=== PATIENT | male | born 1980 | race Caucasian/White ===

== ENCOUNTER 2018-11-25 23:29 | Emergency (ER) | payer BC, SELFPAY ==
[2018-11-25 23:30] VITALS: BP 144/83; PULSE 127; RESP 16; TEMP 36.6; O2SAT 98; BMI 33.7
--- NOTE | 2018-11-25 23:44 | EKG12_ITS ---
Test Reason : SYNCOPE Blood Pressure : / mmHG Vent. Rate : 106 BPM Atrial Rate : 106 BPM P-R Int : 120 ms QRS Dur : 080 ms QT Int : 320 ms P-R-T Axes : 049 066 -07 degrees QTc Int : 425 ms Sinus tachycardia Nonspecific T wave abnormality Abnormal ECG Confirmed by ABUNDIO ROBLERO, DANYA ([id number]), business editor ZAIRA JIMENEZ ([id number]) on 11/30/2018 1:13:37 PM Referred By: ROSA Confirmed By:DANYA DEL CASTILLO MD
[2018-11-25] MEDS: proMETHazine 25 MG/ML Syringe 12.5 MG IV (23:52)
[2018-11-25] MEDS: Ketorolac 30 MG/ML Syringe IV (23:52)
[2018-11-25 23:53] LABS: Absolute Lymphocyte Count 1.13 X10^3/ul (0.83-4.51); Absolute Neutrophil Count 10.1 X10^3/uL (2.0-7.7); Basophil# 0.03 X10^3/uL; Basophil% 0.2 % (0-1); Eosinophil# 0.25 X10^3/uL; Eosinophils% 2.1 % (0-5); Hematocrit 50.8 % (40-54); Lymphocyte # 1.13 X10^3/ul (4.0); Lymphocyte % 9.3 % (19-41); Mean Corp Hgb Conc 35.6 g/gl (32-36); Mean Corpuscular Hgb 29.6 pg (27.0-32.0); Mean Corpuscular Volume 83.1 fL (80-94); Mean Platelet Vol. 8.9 fl (6.2-12.0); Monocyte# 0.49 X10^3/uL; Neutrophil # 10.11 X10^3/uL (2.7-7.7); Neutrophil % 83.5 % (47-70); POSITIVE COUNT NO; POSITIVE DIFFERENTIAL NO; POSITIVE MORPHOLOGY NO; Platelet Count 255 K/mm3 (150-450); RBC Distribution Width CV 13.1 % (11.6-14.6); RBC Distribution Width SD 39.9 fl (35.1-43.9); Red Blood Count 6.11 M/mm3 (4.6-6.2); White Blood Count 12.1 K/mm3 (4.4-11.0)
[2018-11-25] MEDS: 0.9% Normal Saline 1,000 ML 1000 ML IV ×2 (23:53)
[2018-11-25 23:54] LABS: Hemoglobin 18.1 g/dl (13.0-16.5)
[2018-11-26 00:14] LABS: ALB/GLOB Ratio 1.1 RATIO (0.9-2.4); AST(SGOT) 30 U/L (15-37); Alanine Aminotransfer ALT/SGPT 78 U/L (16-61); Albumin, Serum 4.1 g/dL (3.2-5.0); Alkaline Phosphatase 61 U/L (45-117); Anion Gap 9 (5-15); BUN 22 mg/dL (7-18); BUN/Creat Ratio 23.3 RATIO (10-20); Calcium,Total 8.8 mg/dL (8.5-10.1); Chloride 104 mmol/L (98-107); Creatinine, Serum 0.94 mg/dL (0.70-1.30); EST Glomerular Filtration Rate 95 mL/min (>60); Est Glom Filt Rate - Afr Amer 115 mL/min (>60); Globulin 3.7 g/dL (2.2-4.2); Glucose 126 mg/dL (74-106); Lipase 105 U/L (73-393); Potassium 4.2 mmol/L (3.5-5.1); Protein, Total 7.8 g/dL (6.4-8.2); Sodium Level 137 mmol/L (136-145)
[2018-11-26] MEDS: proCHLORPERazine 10 MG/2 ML Vial IV (00:49)
--- NOTE | 2018-11-26 01:21 | ED.VISSUMM ---
- ER Visit Summary Date of Service: 11/26/18 Chief Complaint: Syncope History of Present Illness: The patient is a 38 M who presents with syncope and nausea vomiting diarrhea. He complains of a headache for the past 3-4 days. He states he has been feeling lightheaded. Today he developed severe nausea vomiting and diarrhea for most of the day. He has had multiple episodes of watery stool multiple episodes of nonbloody nonbilious emesis. He states began to feel sick and went to the bathroom to vomit and he woke up on the floor. This is never occurred previously. He complains of some diffuse abdominal cramping but no focal pain. No fevers. Physical Examination: Initial heart rate 127 vitals otherwise unremarkable Moist mucous membranes Heart regular rhythm tachycardia Lungs are clear Abdomen soft nontender nondistended Alert No focal or lateralizing neurological deficits No meningismus Test Results: Labs notable for white count 12.1, hemoglobin 18.1. Glucose 126, BUN 22, ALT 78, lipase normal. EKG shows a sinus tachycardia at a rate of 106 with T wave inversions in lead III and aVF although this is seen on prior EKG and is unchanged. Emergency Department Course and Treatment: Patient was initially treated with IV fluids Toradol and Phenergan. He states that he feels horrible on reevaluation really had no improved seen. On reevaluation his nausea has resolved. He is told to do p.o. challenge. His headache is improved although not resolved. It is at a tolerable level and he would like to go home. He was discharged. He understands to return for new or worsening symptoms. I suspect that given the abrupt onset of nausea vomiting and diarrhea that this is most likely related to a viral gastroenteritis. Treatment Plan: [] Disposition: Discharge Impression: Gastroenteritis Headache This note was generated with [employer] dictation software. It may contain incorrect words, spelling, and punctuation that were not noted in review of the chart prior to signing ED Disposition - Plan for ED Patient: Chief Complaint: Syncope Referrals: Derrek Allen MD [Primary Care Provider] -
--- NOTE | 2018-11-26 01:28 | ED.DEP ---
ED Disposition - Plan for ED Patient: Chief Complaint: Syncope Instructions: ED Diet Vomiting Diarrhea, ED Cephalgia Unspecified Referrals: Derrek Allen MD [Primary Care Provider] -
[2018-11-26 01:36] VITALS: PULSE 90; RESP 18; O2SAT 94
[2018-11-26 02:21] VITALS: BP 128/78; PULSE 87; RESP 17; O2SAT 97
== END 2018-11-26 02:22 | disposition home or self-care (01) ==
LOC: ED 11-26 00:24
PROVIDERS: Emergency Provider Emergency Medicine; Family Provider Family Medicine; PCP Family Medicine
DX: K52.9 Noninfective gastroenteritis and colitis, unspecified (principal); R55 Syncope and collapse; R51 Headache; F32.9 Major depressive disorder, single episode, unspecified; I10 Essential (primary) hypertension; Z79.899 Other long term (current) drug therapy
CPT/HCPCS: 80053; 83690; 85025; 93005; 96361; 96374; 96375; 99283; J7030; A4216

== ENCOUNTER 2019-03-03 16:10 | Emergency (ER) | payer BC, SELFPAY ==
[2019-03-03 16:11] VITALS: BP 106/71; PULSE 119; RESP 20; TEMP 39; O2SAT 96; BMI 34.2
--- NOTE | 2019-03-03 16:35 | ED.DCSUM_ITS ---
- ER Visit Summary Date of Service: 03/03/19 Chief Complaint: Cough, myalgias, vomiting diarrhea History of Present Illness: The patient is a 38 M symptom onset yesterday mild productive cough, myalgias. Vomiting diarrhea. Tolerating oral fluids. No recent antibiotics. No hematemesis, melena, I met with Naima. No abdominal pain. No chest pain. Fevers today with sweats. No headache. No sick contacts. No flu vaccination this year. Denies any comorbidities of any asthma, COPD cardiac history or diabetes. Took Tylenol at 2 PM. No urinary symptoms. Physical Examination: General: Alert and oriented ?3, no acute distress, nontoxic HEENT: Normocephalic, atraumatic. Moist mucosa membranes Neck: supple, nontender. Cardiovascular: Regular rate 96 and rhythm, no murmurs Respiratory: Normal breath sounds, symmetric, no distress Abdomen: Soft, nontender, nondistended Extremities: Nontender, no edema, pulses intact ?4 Neuro: no focal neurological deficits. Test Results: Chest x-ray negative. White count 6.1. Creatinine 1.25. Influenza A positive. Emergency Department Course and Treatment: Patient nontoxic, tachycardic at triage, normal my exam. History concerning for flu which was confirmed in the lab. Given fluid Zofran Toradol. Still had myalgias. No respiratory symptoms. No comorbidities. Discussed continuing symptomatic treatment no recommended anti-virus at this time. He is p.o. challenge and no difficulties. Continue Tylenol and Motrin. Continue oral hydration. Given work note for the next 2 days. Signs and symptoms discussed to return. All questions were answered. Treatment Plan: [] Disposition: Discharge Impression: Influenza A This note was generated with [employer] dictation software. It may contain incorrect words, spelling, and punctuation that were not noted in review of the chart prior to signing ED Disposition - Plan for ED Patient: Disposition: Home or Assisted Living Diagnosis: Influenza A Instructions: Influenza Prescriptions: Ondansetron [Zofran Odt] 4 mg PO Q8H PRN PRN #10 tablet PRN Reason: Nausea Referrals: Derrek Allen MD [Primary Care Provider] - 3-5 Days if not improving
[2019-03-03] MEDS: Ondansetron 4 MG/2 ML Vial IV (16:45)
[2019-03-03] MEDS: Ketorolac 30 MG/ML Syringe IV (16:45)
[2019-03-03] MEDS: 0.9% Normal Saline 1,000 ML 1000 ML IV (16:45)
--- NOTE | 2019-03-03 16:50 | RAD_ITS ---
STUDY: X-RAY CHEST REASON FOR EXAM: Male, 38 years old. Cough TECHNIQUE: Frontal and lateral views of the chest COMPARISON: None. FINDINGS: The lungs are clear. There are no pleural effusions. There is no pneumothorax. The heart is normal in size. The visualized osseous structures are within normal limits. RAD/Chest PA and Lateral IMPRESSION: No acute thoracic pathology. Electronically Signed: Praneeth Trent, at 17:10 EDT Tel , Service support ,
[2019-03-03 17:00] LABS: Absolute Lymphocyte Count 0.37 X10^3/ul (0.83-4.51); Absolute Neutrophil Count 5.3 X10^3/uL (2.0-7.7); Basophil# 0.02 X10^3/uL; Basophil% 0.3 % (0-1); Eosinophil# 0.01 X10^3/uL; Eosinophils% 0.2 % (0-5); Hematocrit 46.2 % (40-54); Hemoglobin 15.4 g/dl (13.0-16.5); Lymphocyte # 0.37 X10^3/ul (4.0); Mean Corp Hgb Conc 33.3 g/gl (32-36); Mean Platelet Vol. 9.7 fl (6.2-12.0); Monocyte# 0.45 X10^3/uL; Monocyte% 7.4 % (0-10); Neutrophil # 5.26 X10^3/uL (2.7-7.7); Neutrophil % 85.9 % (47-70); Platelet Count 192 K/mm3 (150-450); RBC Distribution Width SD 41.5 fl (35.1-43.9); Red Blood Count 5.31 M/mm3 (4.6-6.2); White Blood Count 6.1 K/mm3 (4.4-11.0)
[2019-03-03 17:02] LABS: Differential Indicated SCAN CRITERIA MET; POSITIVE COUNT NO; POSITIVE DIFFERENTIAL YES; POSITIVE MORPHOLOGY NO
[2019-03-03 17:12] LABS: Anion Gap 4 (5-15); BUN 13 mg/dL (7-18); BUN/Creat Ratio 10.4 RATIO (10-20); Calcium,Total 8.5 mg/dL (8.5-10.1); Chloride 103 mmol/L (98-107); Creatinine, Serum 1.25 mg/dL (0.70-1.30); EST Glomerular Filtration Rate 69 mL/min (>60); Est Glom Filt Rate - Afr Amer 83 mL/min (>60); Estimated Creatinine Clearance 88.81 ml/min; Glucose 93 mg/dL (74-106); Potassium 4.6 mmol/L (3.5-5.1); Sodium Level 136 mmol/L (136-145)
[2019-03-03 17:50] LABS: Platelet Estimate ADEQUATE (ADEQ); Red Cell Morphology NORM C+C NORMAL (NORM C&C)
[2019-03-03 18:39] VITALS: BP 102/53; PULSE 106; RESP 18; O2SAT 94
== END 2019-03-03 18:40 | disposition home or self-care (01) ==
PROVIDERS: Emergency Provider Emergency Medicine; Family Provider Family Medicine; PCP Family Medicine
DX: J11.1 Influenza due to unidentified influenza virus with other respiratory manifestations (principal); R00.0 Tachycardia, unspecified; R11.2 Nausea with vomiting, unspecified; R19.7 Diarrhea, unspecified; Z79.899 Other long term (current) drug therapy
CPT/HCPCS: 71046; 80048; 85025; 87804; 96361; 96374; 96375; 99283; J7030; J2405

== ENCOUNTER 2021-03-21 21:59 | Observation (INO) | payer BC, SELFPAY ==
[2021-03-21 21:59] VITALS: BP 163/95; PULSE 84; RESP 16; TEMP 36.4; O2SAT 98; BMI 32.5
--- NOTE | 2021-03-21 22:19 | EKG12_ITS ---
Test Reason : SYNCOPE Blood Pressure : / mmHG Vent. Rate : 069 BPM Atrial Rate : 069 BPM P-R Int : 130 ms QRS Dur : 082 ms QT Int : 384 ms P-R-T Axes : 050 054 015 degrees QTc Int : 411 ms Normal sinus rhythm Normal ECG Confirmed by HUGO ROBLERO, ADRIANA ([id number]), photo editor MATHEUS LUNDY ([id number]) on 03/23/2021 8:18:15 AM Referred By: DAVIS Confirmed By:SAMIRA ARIAS MD
--- NOTE | 2021-03-21 22:20 | CT_ITS ---
STUDY: CT BRAIN WITH AND WITHOUT CONTRAST REASON FOR EXAM: Male, 40 years old. Headaches RADIATION DOSAGE (If Supplied By Facility): CTDIvol = ( 44.99 ) mGy, DLP = ( 1682.21 ) mGycm TECHNIQUE: Transaxial CT imaging of the brain was performed pre and post contrast administration. The examination was performed with intravenous administration of IV 75mL Isovue-370. Individualized dose optimization techniques were used for this CT. COMPARISON: None. FINDINGS: Normal soft tissue structures. Normal calvarium. Normal size ventricles and extra-axial spaces for the patient''s age. Normal white matter tracts of the cerebral hemispheres. Normal basal ganglia and thalami. Normal brainstem. Normal cerebellum. There is no intracranial hemorrhage. There are no findings of an acute ischemic infarction. Normal visualized paranasal sinuses. CT/Brain/Head W/WO Contrast IMPRESSION: Normal unenhanced and enhanced CT scan of the brain. Electronically Signed: Jayson Alvarez DO at 23:02 EDT Tel [phone], Service support ,
[2021-03-21 22:24] VITALS: O2SAT 95
[2021-03-21 22:32] LABS: Absolute Lymphocyte Count 2.22 X10^3/uL (0.83-4.51); Absolute Neutrophil Count 4.7 X10^3/uL (2.0-7.7); Basophil# 0.03 X10^3/uL; Basophil% 0.4 % (0-1); Eosinophil# 0.34 X10^3/uL; Eosinophils% 4.3 % (0-5); Hematocrit 48.6 % (40-54); Hemoglobin 16.3 g/dL (13.0-16.5); Lymphocyte # 2.22 X10^3/ul (0.83-4.51); Lymphocyte % 28.3 % (19-41); Mean Corp Hgb Conc 33.5 g/dL (32-36); Mean Corpuscular Volume 86.5 fL (80-94); Mean Platelet Vol. 8.8 fl (6.2-12.0); Monocyte# 0.52 X10^3/uL; Monocyte% 6.6 % (0-10); NRBC Flagged by Analyzer 0 % (0-5); Neutrophil # 4.68 X10^3/uL (2.7-7.7); Neutrophil % 59.8 % (47-70); Platelet Count 216 K/mm3 (150-450); RBC Distribution Width CV 11.9 % (11.6-14.6); RBC Distribution Width SD 37.7 fl (35.1-43.9); Red Blood Count 5.62 M/mm3 (4.6-6.2); White Blood Count 7.8 K/mm3 (4.4-11.0)
--- NOTE | 2021-03-21 22:35 | RAD_ITS ---
STUDY: X-RAY CHEST REASON FOR EXAM: Male, 40 years old. Chest pain TECHNIQUE: Frontal and lateral views COMPARISON: 03/03/2019 FINDINGS: The lungs are clear and expanded. There is no demonstrated pleural abnormality. Normal size heart. Normal mediastinum and pablito. Normal visualized pulmonary arteries. Normal visualized aortic arch and descending thoracic aorta. Normal visualized thoracic spine. Normal visualized ribs, clavicles, and shoulders. There is no demonstrated abnormality of the visualized soft tissue structures of the upper abdomen. RAD/Chest PA and Lateral IMPRESSION: Normal x-ray examination of the chest. Electronically Signed: Jayson Alvarez DO at 23:33 EDT Tel [phone], Service support ,
[2021-03-21 22:47] LABS: D-Dimer Quantitative (DVT/PE) <= 0.27 FEU/ug/m (0.27-0.49)
[2021-03-21 22:55] LABS: Anion Gap 6 (5-15); BUN 18 mg/dL (7-18); BUN/Creat Ratio 19.4 RATIO (10-20); Calcium,Total 8.8 mg/dL (8.5-10.1); Chloride 107 mmol/L (98-107); Creatinine, Serum 0.93 mg/dL (0.70-1.30); EST Glomerular Filtration Rate 96 mL/min (>60); Est Glom Filt Rate - Afr Amer 116 mL/min (>60); Estimated Creatinine Clearance 117.05 ml/min; Glucose 105 mg/dL (74-106); Potassium 3.7 mmol/L (3.5-5.1); Sodium Level 140 mmol/L (136-145)
[2021-03-21 23:30] VITALS: BP 139/95; PULSE 81; RESP 16; O2SAT 98
--- NOTE | 2021-03-21 23:55 | PCM.HP.STD ---
Problem List (1) Intractable migraine with aura Status: Acute (2) Syncope Status: Acute Qualifiers: Encounter type: initial encounter History of Present Illness Date of Admission: 03/21/21 Chief Complaint: Headache, syncope The patient is a 40 year old M who presents to the ER following syncopal episode at home. Patient reports that he has had an intractable migraine for 6 weeks. Patient has tried Tylenol, ibuprofen, Excedrin Migraine without relief. Patient also reports that he does smoke pot which initially dulled the pain but as of recent has not been effective. Patient reports that the pain is sharp and shooting to bilateral temporal area with dull ache in bilateral occipital's. Patient states the severity waxes and wanes but that there is always pain. Patient also reports light sound sensitivity with occasional auras that appear like fuzzy areas in his vision. Patient denies fever, chills, shortness of breath, chest pain, nausea, vomiting. Patient does report decreased appetite concurrent with migraine. Past Medical History Allergies acetaminophen [From Vicodin] Adverse Reaction (Verified 03/21/21 22:02) Nausea/Vom/Diarrhea codeine Adverse Reaction (Verified 03/21/21 22:02) Nausea/Vom/Diarrhea hydrocodone bitartrate [From Vicodin] Adverse Reaction (Verified 03/21/21 22:02) Nausea/Vom/Diarrhea Surgical History: no surgical history Psychiatric History: No pertinent psych hx Lives: With Family Smoking Status: Never smoker Alcohol: Rare Drugs: Marijuana - *Family History Maternal History Items: No pertinent history - Anxiety/depression Paternal History Items: COPD, Diabetes, High Cholesterol, Heart Disease, Hypertension Review of Systems Constitutional: Denies: Chills, Fever, Weight Change HEENT: Denies: Head Aches, Sinus Congestion, Sinus Drainage Cardiovascular: Denies: Chest Pain, Palpitations Respiratory: Denies: Cough, Shortness of breath at rest, Sputum production Gastrointestinal: Denies: Abdominal Pain, Nausea, Vomiting Genitourinary: Denies: Dysuria Musculoskeletal: Denies: Joint Pain, Joint Tenderness Skin: Denies: Rash, Wounds Neurological: Reports: Headaches - Intractable migraine x6 weeks, with light and sound sensitivity and visual auras of blurry areas in his visual field. Denies: Focal weakness, Numbness, Tingling Psychiatric: Denies: Anxiety, Depression, Homicidal Ideations, Suicidal Ideations Hematologic/ Lymphatic: Denies: Easy Bruising, Easy Bleeding VTE Information - Inpt Only VTE Present on Admission: No VTE Mechan Device Prophylaxis: None VTE Pharm Prophylaxis ordered?: No Patient Problems: Active and Suspected Problems Syncope (Acute) - Physical Exam Vitals/I&O's: Vital Signs Temp Pulse Resp BP Pulse Ox 97.6 F L 81 16 139/95 H 98 03/21/21 21:59 03/21/21 23:30 03/21/21 23:30 03/21/21 23:30 03/21/21 23:30 Oxygen Delivery Method Room Air Weight: 240 lb Body Mass Index (BMI) 32.5 General: Alert, Oriented x3, Cooperative HEENT: Atraumatic, PERRLA, EOMI, Normocephalic Neck: Supple, No JVD, Negative Carotid Bruits Lungs: Clear to auscultation, Normal air movement Cardiovascular: Regular rate, Regular Rhythm, Normal S1, Normal S2, No murmurs Abdomen: Bowel Sounds Present, Soft, Non Tender Extremities: No edema, Capillary Refill Less than 3 Seconds Skin: No rashes, No breakdown Musculoskeletal: No Tenderness to Palpation of Joints or Extremities Neurological: Cranial nerves II-XII grossly intact Psych/Mental Status: Normal Affect, Appropriate Laboratory Results 03/21/21 22:25: WBC 7.8, RBC 5.62, Hgb 16.3, Hct 48.6, MCV 86.5, MCH 29.0, MCHC 33.5, RDW Std Deviation 37.7, RDW Coeff of Myrna 11.9, Plt Count 216, MPV 8.8, Immature Gran % (Auto) 0.600, Neut % (Auto) 59.8, Lymph % (Auto) 28.3, [place] % (Auto) 6.6, Eos % (Auto) 4.3, Baso % (Auto) 0.4, Absolute Neuts (auto) 4.7, Absolute Lymphs (auto) 2.22, Nucleated RBC % 0 03/21/21 22:25: Sodium 140, Potassium 3.7, Chloride 107, Carbon Dioxide 27.0, Anion Gap 6, BUN 18, Creatinine 0.93, Estim Creat Clear Calc 117.05, Est GFR (MDRD) Af Amer 116, Est GFR (MDRD) Non-Af 96, BUN/Creatinine Ratio 19.4, Glucose 105, Calcium 8.8, Troponin I < 0.015 03/21/21 22:25: D-Dimer Quant (PE/DVT) <= 0.27 Assessment/Plan All Active Problems Syncope (Acute) Intractable migraine with aura (Acute) 1. Syncope -Admit to PCU for observation and cardiac monitoring -Obtain orthostatic vital signs due to multiple syncopal episodes today -Trend cardiac enzymes -Echo in a.m. to rule out cardiac etiology -CBC, CMP, and TSH in a.m. -Magnesium level ordered -Urine drug screen ordered 2. Intractable migraine -IV Depacon, IV Toradol, p.o. gabapentin, IV Decadron ordered -MRI brain, MRA head ordered. -CT normal unenhanced and enhanced CT scan of the brain. DVT prophylaxis-not indicated This patient was seen by DEVONTE Fajardo under the supervision of Dr. Cheung.
[2021-03-22] VITALS (12 sets, daily range): BP systolic 134–152; BP diastolic 70–101; PULSE 62–93; RESP 15–18; TEMP 36.3–36.9; O2SAT 97–98; BMI 31.8
--- NOTE | 2021-03-22 00:25 | ED.DCSUM_ITS ---
History of Present Illness Chief Complaint: Syncope Narrative: Patient presenting for evaluation secondary to a syncopal episode. Patient states that over the course of about the last month and a half has had a persistent headache. He states that it is continuous from sun up to , and has been refractory to every [id number] medication I can try. Patient reports that it is mainly a frontal headache. He denies that there is any change as far as time of day, there is no neurologic signs or symptoms a ssociated with it such as visual changes numbness or weakness. No nausea or vomiting. He does report some phonophobia, but no photophobia associated with it. No recent head injuries. Patient was concerned because today he states that he was going to get in the bathtub and he had a completely unprovoked syncopal episode. States that he was getting ready to get in the bath and then he woke up on the floor of his bathroom looking up. He may be had some preceding shortness of breath, but denies any other preceding symptoms. Patient does reports that he had long travel to [place] about 2 months ago. No history of DVT or PE. Past Medical History - Allergies and Home Meds Allergies/Adverse Reactions: Allergies acetaminophen [From Vicodin] Adverse Reaction (Verified 03/21/21 22:02) Nausea/Vom/Diarrhea codeine Adverse Reaction (Verified 03/21/21 22:02) Nausea/Vom/Diarrhea hydrocodone bitartrate [From Vicodin] Adverse Reaction (Verified 03/21/21 22:02) Nausea/Vom/Diarrhea Prior records reviewed: Yes Past Medical History: None Smoking Status: Never smoker Alcohol: None Drugs: None Review of Systems All systems negative except as indicated General: Denies: Chills, Fever, Sweats Eyes: Denies: Visual changes - bilaterally, Diplopia ENT: Denies: Rhinorrhea, Sore throat Cardiovascular: Reports: - - Syncope Respiratory: Denies: Dyspnea, Cough, Dyspnea on exertion Gastrointestinal: Denies: Abdominal pain, Nausea, Vomiting, Diarrhea, Melena, Hematochezia Genitourinary: Denies: Dysuria, Hematuria, Frequency Musculoskeletal: Denies: Back pain, Extremity Pain Skin: Denies: Rash, Wounds Neurological: Reports: Headache Physical Exam Vital Signs/Narrative: Vital Signs Temp Pulse Resp BP Pulse Ox 03/21/21 23:30 81 16 139/95 H 98 03/21/21 22:24 95 03/21/21 21:59 97.6 F L 84 16 163/95 H 98 Inital Vital Signs reviewed: Yes General: Well nourished, Well developed, No Acute Distress Head: Normocephalic, Atraumatic Eyes: Perrl, EOMI ENT: Moist mucous membranes, No rhinorrhea Neck: Supple, Nontender Cardiovascular: Regular rate, Regular rhythm, No murmurs Respiratory: No distress, CTA bilaterally, Chest nontender Abdomen: Soft, Nontender, Nondistended, Normal bowel sounds Back: Nontender, Normal Inspection Extremities: Nontender, No edema Skin: Normal color, No rash Neurological: Alert, Oriented x3, Cranial nerves II-XII grossly intact, Normal Strength, Normal Sensation Psychological: Normal affect, Normal Mood Diagnostic/Tx/Re-eval Chest X-Ray - ED: 2 View, Read by ED Physician, Normal Clinical Impression(s) from Imaging Studies Brain CT 03/21/21 22:20 IMPRESSION: Normal unenhanced and enhanced CT scan of the brain. Electronically Signed: Jayson Alvarez DO at 23:02 EDT Tel [phone], Service support , Chest X-Ray 03/21/21 22:35 IMPRESSION: Normal x-ray examination of the chest. Electronically Signed: Jayson Alvarez DO at 23:33 EDT Tel [phone], Service support , Laboratory Data 03/21/21 03/21/21 03/21/21 22:25 22:25 22:25 WBC 7.8 RBC 5.62 Hgb 16.3 Hct 48.6 MCV 86.5 MCH 29.0 MCHC 33.5 RDW Std Deviation 37.7 RDW Coeff of Myrna 11.9 Plt Count 216 MPV 8.8 Immature Gran % (Auto) 0.600 Neut % (Auto) 59.8 Lymph % (Auto) 28.3 [place] % (Auto) 6.6 Eos % (Auto) 4.3 Baso % (Auto) 0.4 Absolute Neuts (auto) 4.7 Absolute Lymphs (auto) 2.22 Nucleated RBC % 0 D-Dimer Quant (PE/DVT) <= 0.27 Sodium 140 Potassium 3.7 Chloride 107 Carbon Dioxide 27.0 Anion Gap 6 BUN 18 Creatinine 0.93 Estim Creat Clear Calc 117.05 Est GFR (MDRD) Af Amer 116 Est GFR (MDRD) Non-Af 96 BUN/Creatinine Ratio 19.4 Glucose 105 Calcium 8.8 Troponin I < 0.015 - EKG Initial EKG Interpretation: - - Sinus rhythm at [address] segments normal T waves normal KS and QTc intervals no evidence of right ventricular strain no evidence of acute ischemia or arrhythmia. - Medical Decision Making Patient presented secondary to a syncopal episode. Patient complained of this prolonged headache, so I did perform CT imaging both with and without contrast per radiology are negative. Chest x-ray per radiology my personal review is negative for acute pathology. CBC chemistry and troponin as well as D-dimer were found to be unremarkable. Patient's syncope story is extremely concerning, and of also concerned about this persistent headache with no prior history. I believe he requires admission. Patient will be admitted under the hospitalist. ED Disposition - Plan for ED Patient: Disposition: Acute Care Hospital [facility] Diagnosis: Syncope, Headache
--- NOTE | 2021-03-22 01:34 | MRI_ITS ---
STUDY: MRI BRAIN WITHOUT CONTRAST REASON FOR EXAM: Male, 40 years old. Frontal Headache, syncopal episode TECHNIQUE: Standardized multiplanar fat and water weighted pulse sequences were obtained. COMPARISON: CT head with and without contrast 03/21/2021. FINDINGS: No diffusion restriction throughout the brain parenchyma. No focal signal abnormalities throughout the brain parenchyma. Normal size of the ventricles and extra-axial spaces for the patient''s age. Normal white matter tracts of the supratentorial brain. Normal bilateral basal ganglia. Normal thalami. There is no extra-axial fluid accumulation. Normal flow voids within the major intracranial circulation suggesting patency by spin echo criteria. Normal sella turcica, pituitary gland, infundibular stalk, optic chiasm and hypothalamus. Normal tectal plate and pineal gland. Normal midbrain, edgar and medulla. Normal cerebellum. Normal basal cisterns. Normal bilateral temporal bones. Normal bilateral internal auditory canals. No demonstrated orbital abnormality, within the constraints of a routine brain study. Normal visualized paranasal sinuses. Normal calvarium and skull base. Normal visualized soft tissue structures. Normal visualized upper cervical spine. MRI/Brain without Contrast IMPRESSION: Normal unenhanced MRI of the brain. Electronically Signed: Mauri Polanco MD at 12:16 EDT , Service support ,
--- NOTE | 2021-03-22 01:34 | ECHOCS_ITS ---
Reason For Study: syncope Procedure This was a 2D Doppler, Color Flow transthoracic echocardiogram. The study was technically difficult. Due to body habitus. Contrast injection was performed. Exam performed portable in patient room. Left Ventricle Normal LV size. The estimated ejection fraction is 65 %. No evidence for diastolic dysfunction. No regional wall motion abnormalities noted. Right Ventricle Normal RV size. Normal systolic function. Atria Normal left atrium. Normal right atrium. No doppler evidence for ASD. Mitral Valve There is no mitral valve stenosis. No mitral valve insufficiency. Tricuspid Valve There is no tricuspid stenosis. Unable to estimate RV systolic pressure due to inadequate jet, pulmonary artery pressure probably normal. Aortic Valve There is no aortic stenosis. No aortic valve insufficiency. Pulmonic Valve There is no pulmonic valvular stenosis. No pulmonic valve insufficiency. Great Vessels Normal aortic root. Pericardium/Pleural No pericardial effusion. Medication Diluted definity 2.0ml given slow IV push to enhance endocardial definition. MMode/2D Measurements & Calculations LVIDd: 5.0 cm IVSd: 0.98 cm Ao root diam: 3.3 cm LVIDs: 3.0 cm LVPWd: 1.1 cm RVDd: 3.6 cm FS: 39.9 % LAV(MOD-bp): 64.1 ml LVAd ap4: 31.7 cm2 LVAd ap2: 32.0 cm2 LAV(MOD-bp) Indexed: 28.1 ml/m2 LVLd ap4: 8.1 cm LVLd ap2: 8.3 cm LAV(MOD-sp2): 55.3 ml EDV(MOD-sp4): 102.0 ml EDV(MOD-sp2): 100.2 ml LAV(MOD-sp4): 67.3 ml EDV(sp4-el): 105.8 ml EDV(sp2-el): 104.2 ml LVAs ap4: 16.1 cm2 LVAs ap2: 14.9 cm2 LVLs ap4: 6.3 cm LVLs ap2: 6.6 cm ESV(MOD-sp4): 35.1 ml ESV(MOD-sp2): 30.3 ml ESV(sp4-el): 35.1 ml ESV(sp2-el): 28.4 ml EF(MOD-sp4): 65.6 % EF(MOD-sp2): 69.7 % EF(sp4-el): 66.8 % SV(MOD-sp4): 66.9 ml SV(MOD-sp2): 69.8 ml SV(sp4-el): 70.7 ml LA A4 area: 21.7 cm2 LA dimension(2D): 3.2 cm RA A4 area: 15.3 cm2 Time Measurements MV dec time: 0.16 sec Doppler Measurements & Calculations MV E max ulises: 66.9 cm/sec Lat Peak E' Ulises: 8.7 cm/sec Med Peak E' Ulises: 8.3 cm/sec MV A max ulises: 63.5 cm/sec E/E' lat: 7.7 E/E' med: 8.1 MV E/A: 1.1 Ao V2 max: 125.6 cm/sec LV V1 max: 97.6 cm/sec PA V2 max: 104.1 cm/sec Ao max P.3 mmHg LV V1 max P.8 mmHg ECHO/Echo Complete W/ Contrast Interpretation Summary The estimated ejection fraction is 65 %. No evidence for diastolic dysfunction. Ordering Physician: Renee Barboza Referring Physician: Moises Fermin Performed By: Mariaelena Bianchi, BE, RVT
--- NOTE | 2021-03-22 01:34 | MRI_ITS ---
STUDY: MRA OF THE HEAD WITHOUT CONTRAST REASON FOR EXAM: Male, 40 years old. Frontal Headache, syncopal episode TECHNIQUE: 3-D havd-bc-nenghu (TOF) imaging was performed with MIPs. The study was performed unenhanced. COMPARISON: None. FINDINGS: Normal bilateral petrous carotid arteries. Normal right cavernous carotid artery with a normal supraclinoid bifurcation. Normal left cavernous carotid artery with a normal supraclinoid bifurcation. Normal right A1 segment of the anterior cerebral artery. Normal left A1 segment of the anterior cerebral artery. Normal intact anterior communicating artery (ACOM). Normal bilateral A2 segments of the anterior cerebral arteries. Normal right M1 and M2 segments of the middle cerebral arteries, with a normal M1 bifurcation. Normal left M1 and M2 segments of the middle cerebral arteries, with a normal M1 bifurcation. No visible right posterior communicating artery (PCOM). origin of the left MICA PASTER off the left internal carotid artery. This accounts for the developmentally absent left P1 segment rather than a widely patent left posterior communicating artery (PCOM). Normal bilateral vertebral arteries. They are codominant. Normal basilar artery with a normal basilar bifurcation. The visualized bilateral superior cerebellar (SCA) arteries are normal. Developmentally absent left P1 segment. Normal right P1, bilateral P2 and visualized P3 segments of the posterior cerebral arteries. There is no demonstrated aneurysm of the ute of [place]. There is no major vessel occlusion or hemodynamically significant stenosis. There is no demonstrated abnormality of the visualized brain. MRI/MRA Head ONLY without Contrast IMPRESSION: Normal MRA of the head Electronically Signed: Mauri Polanco MD at 10:30 EDT , Service support ,
[2021-03-22] MEDS: Ketorolac 30 MG/ML Syringe IV ×3 (02:28→14:13)
[2021-03-22] MEDS: dexAMETHasone 4 MG/ML Vial IV ×4 (02:29→18:00)
[2021-03-22] MEDS: 0.9% Saline Lock 10 ML Syringe IV ×7 (02:30→18:01)
[2021-03-22] MEDS: MELATONIN 3 MG TABLET PO (02:41)
[2021-03-22 03:28] LABS: Amphetamine Urine VISTA NEGATIVE (<1000 ng/mL); Barbiturate Urine VISTA NEGATIVE (< 200 ng/mL); Benzodiazepine Urine VISTA NEGATIVE (< 200 ng/mL); Cocaine Urine VISTA NEGATIVE (< 300 ng/mL); Ecstacy Urine VISTA NEGATIVE (< 500 ng/mL); Methadone Urine VISTA NEGATIVE (< 300 ng/mL); PCP Urine VISTA NEGATIVE (< 25 ng/mL); THC Urine VISTA POSITIVE (< 50 ng/mL); Vista UDS pH Range 6
[2021-03-22 05:06] LABS: Absolute Lymphocyte Count 1.42 X10^3/uL (0.83-4.51); Absolute Neutrophil Count 5.1 X10^3/uL (2.0-7.7); Basophil# 0.03 X10^3/uL; Basophil% 0.4 % (0-1); Eosinophil# 0.23 X10^3/uL; Eosinophils% 3.2 % (0-5); Hematocrit 48.9 % (40-54); Hemoglobin 16.4 g/dL (13.0-16.5); Lymphocyte # 1.42 X10^3/ul (0.83-4.51); Mean Corp Hgb Conc 33.5 g/dL (32-36); Mean Corpuscular Hgb 28.5 pg (27.0-32.0); Monocyte# 0.25 X10^3/uL; Monocyte% 3.5 % (0-10); NRBC Flagged by Analyzer 0 % (0-5); Neutrophil # 5.12 X10^3/uL (2.7-7.7); Neutrophil % 72.2 % (47-70); Platelet Count 200 K/mm3 (150-450); RBC Distribution Width SD 37.2 fl (35.1-43.9); Red Blood Count 5.75 M/mm3 (4.6-6.2); White Blood Count 7.1 K/mm3 (4.4-11.0)
[2021-03-22 05:57] LABS: ALB/GLOB Ratio 1.1 RATIO (0.9-2.4); AST(SGOT) 24 U/L (15-37); Alanine Aminotransfer ALT/SGPT 59 U/L (16-61); Albumin, Serum 3.8 g/dL (3.2-5.0); Alkaline Phosphatase 63 U/L (45-117); Anion Gap 4 (5-15); BUN 15 mg/dL (7-18); BUN/Creat Ratio 17.3 RATIO (10-20); Calcium,Total 8.9 mg/dL (8.5-10.1); Chloride 105 mmol/L (98-107); Creatinine, Serum 0.86 mg/dL (0.70-1.30); EST Glomerular Filtration Rate 104 mL/min (>60); Est Glom Filt Rate - Afr Amer 126 mL/min (>60); Estimated Creatinine Clearance 126.58 ml/min; Globulin 3.5 g/dL (2.2-4.2); Glucose 118 mg/dL (74-106); Potassium 4.4 mmol/L (3.5-5.1); Protein, Total 7.3 g/dL (6.4-8.2); Sodium Level 135 mmol/L (136-145); Thyroid Stim Hormone (TSH) 1.15 uIU/mL (0.358-3.74)
[2021-03-22] MEDS: Gabapentin 100 MG Capsule PO ×3 (08:09→18:00)
[2021-03-22] MEDS: Morphine 2 MG/ML Syringe IV ×2 (11:16→15:05)
[2021-03-22] MEDS: Ondansetron 4 MG/2 ML Vial IV (11:17)
--- NOTE | 2021-03-22 18:22 | DCINST_ITS ---
- Discharge Diagnoses Current Active Problems: Current Active and Chronic Problems Syncope (Acute) Intractable migraine with aura (Acute) You will use the following diet at home:: No restrictions Your food should be the consistency of: Regular Your liquids should be the consistency of: Regular/Thin Discharge Activity: - - do not go back to work, avoid driving alone until you see your physician on Friday Return to work on:: 03/27/21 Weight Bearing Status: Full weight bearing Allergies/Adverse Reactions: Allergies acetaminophen [From Vicodin] Adverse Reaction (Verified 03/22/21 01:44) Nausea/Vom/Diarrhea codeine Adverse Reaction (Verified 03/22/21 01:44) Nausea/Vom/Diarrhea hydrocodone bitartrate [From Vicodin] Adverse Reaction (Verified 03/22/21 01:44) Nausea/Vom/Diarrhea Primary Care Physician: Moises Fermin DO [Primary Care Provider] - Please follow up with your Primary Care Physician in: next friday Test Results: Test results from this visit will be discussed in further detail at your follow- up appointment, if applicable.
--- NOTE | 2021-03-23 18:53 | DS.PCM_ITS ---
Discharge Date and Diagnosis - Problem List Patient Problems: Active and Suspected Problems Syncope (Acute) Intractable migraine with aura (Acute) Date of Admission: 03/21/21 Date of Discharge: 03/22/21 - Primary Discharge Diagnosis Acute Problems: Active Problems #1 syncope-etiology unclear #2 cephalgia-etiology unclear Hospital Course and Treatment Operations: None Procedures: 2-D Echocardiogram Summary of Care Provided: The patient is a 40 year old M was seen in the emergency room at [facility] with a chief complaint of a syncopal episode which occurred at home after he stood up and went into his bathroom. Patient stated that he passed out but did not injure himself and woke up on the floor of his bathroom. Work-up in the emergency room included a CT of his brain which was unremarkable. Tox screen was positive for cannabinoids, the remainder the patient's labs were unremarkable. Patient was placed in the observation status on PCU, he underwent an MRI of the brain which was unremarkable, patient underwent an echocardiogram which was also unremarkable. The etiology of the patient's headache which he stated had been present for 6 weeks was unknown. On 03/22/2021, patient was seen and examined: On examination he appeared in good health and spirits. Vital signs as documented. Skin warm and dry and without overt rashes. Neck without JVD, neck was supple, trachea midline, thyroid was normal. Lungs clear bilaterally, normal air movement was noted. Heart exam notable for regular rhythm, normal sounds and absence of murmurs, rubs or gallops. Abdomen unremarkable and without evidence of organomegaly, masses, or abdominal aortic enlargement. Bowel sounds are present, abdomen is not distended. Extremities nonedematous, no cyanosis was noted, no clubbing was noted. Neuro: Cranial nerves II through XII are grossly intact, no focal motor deficits were noted, sensation to light touch and pinprick intact, motor exam 5/5 throughout. Psych: Patient is alert and oriented x3, he does not appear anxious or depressed, he does not appear agitated. Patient appears stable for discharge on 03/22/2021, he was instructed not to return to work until he was seen by his family physician next week, he was also instructed not to drive alone until he was reevaluated by his family physician. Patient Problems: Active and Suspected Problems Syncope (Acute) Intractable migraine with aura (Acute) - Physical Exam Vitals/I&O's: Vital Signs Temp Pulse Resp BP Pulse Ox 97.3 F L 86 18 152/72 H 97 03/22/21 19:16 03/22/21 19:16 03/22/21 19:16 03/22/21 19:16 03/22/21 19:16 Oxygen Delivery Method Room Air Weight: 106.4 kg Body Mass Index (BMI) 31.8 Intake and Output for Last 24 Hours 03/21/21 03/22/21 03/23/21 23:59 23:59 23:59 Intake Total 795 / 795 Balance 795 / 795 Discharge Activity: - - do not go back to work, avoid driving alone until you see your physician on Friday Return to work on:: 03/27/21 Weight Bearing Status: Full weight bearing Primary Care Physician: Moises Fermin DO [Primary Care Provider] - Please follow up with your Primary Care Physician in: next friday Disposition: Home Minutes spent on discharge:: 31 Patient Condition:: Stable Medical Necessity - Tobacco Use Smoking Status: Never smoker Tobacco Use: - Meaningful Use Info Meaningful Use Diagnoses (Choose all that apply): None applicable OBSV E&M: 90007 Observation care discharge
== END 2021-03-22 19:20 | disposition home or self-care (01) ==
LOC: ED 23:00 → PCU 03-22 00:20
PROVIDERS: Nurse Practitioner Family; Admitting Provider Family Medicine; Emergency Provider Emergency Medicine; PCP Family Medicine; Visit Provider Internal Medicine
DX: R55 Syncope and collapse (principal); G43.119 Migraine with aura, intractable, without status migrainosus; E66.9 Obesity, unspecified; Z68.31 Body mass index [BMI] 31.0-31.9, adult; R03.0 Elevated blood-pressure reading, without diagnosis of hypertension
CPT/HCPCS: 36415; 70470; 70544; 70551; 71046; 80048; 80053; 80307; 83735; 84443; 84484; 85025; 85379; 93005; 93306; 96365; 96366; 96375; 96376; 97802; 99218; 99285; Q9957; Q9967; A4216; C8929; G0378; J2405

== ENCOUNTER 2021-12-20 01:47 | Emergency (ER) | payer MEDICAID, SELFPAY ==
[2021-12-20 01:47] VITALS: BP 202/94; PULSE 99; RESP 15; TEMP 35.8; O2SAT 98; BMI 32.1
[2021-12-20 01:49] VITALS: BP 202/94; PULSE 99; RESP 15; TEMP 35.8; O2SAT 98
--- NOTE | 2021-12-20 01:58 | ED.VIS.DENTA ---
HPI History of Present Illness Chief Complaint: Dental Informant: patient Onset/Context/Timing Onset: Today Context: Sudden Onset (While eating dinner) Timing: Continuous Quality: Throbbing Location: Right mandibular molar Current Severity: Severe Maximum Severity: Severe Worsened by: Eating Relieved by: - (Drinking cold liquid) Associated Symptoms Assocated Symptom - Dental: Negative for fever, jaw swelling or face swelling Narrative Narrative: Patient actually saw dentist this past day, because of an issue with one of his molars, it is decayed and was in several pieces so the dentist placed him on antibiotics which he started and planned on bringing him back for a cap and/or other manipulation. He states tonight he was eating a sandwich, and he suddenly felt pain in the tooth with eating, and pieces of the tooth fell out of his mouth, and he is having a lot of pain. PFSH PFSH Medical History no medical history no medical history Home Medications amoxicillin 875 mg PO BID 12/20/21 [History Last Taken Unknown] Allergy/AdvReac Type Severity Reaction Status Date / Time acetaminophen [From Vicodin] AdvReac Nausea/Vom/ Verified 12/20/21 01:49 Diarrhea codeine AdvReac Nausea/Vom/ Verified 12/20/21 01:49 Diarrhea hydrocodone bitartrate AdvReac Nausea/Vom/ Verified 12/20/21 01:49 [From Vicodin] Diarrhea Social History Smoking Status: Never smoker ROS ROS ED Constitutional Constitutional ED: Denies chills or fever(s) Eyes Eyes: Denies change in vision or double vision ENT ENT ED: Reports dental pain; Denies sinus pain or throat swelling Cardiovascular Cardiovascular: Denies chest pain or palpitations Respiratory/Chest Respiratory/Chest: Denies cough or dyspnea Integumentary Denies abscess or rash Neurologic Neurologic: Denies headache(s), paresthesias or weakness EXAM Physical Exam Const Vital Signs: 12/20/21 01:47 12/20/21 01:49 Temperature 96.5 F L 96.5 F L Temperature Source Temporal Temporal Pulse Rate 99 99 Respiratory Rate 15 15 Blood Pressure 202/94 H 202/94 H Blood Pressure Mean 130 130 Pulse Ox 98 98 Oxygen Delivery Method Room Air Room Air Positive well nourished and well developed General Appearance ED: well developed and NAD HEENT Face and Sinus: sinuses nontender Mouth ED: No drooling and No trismus Mouth: No drooling and No trismus Teeth and Gingiva: other Other Details: Tender decayed tooth #31 without abscess, discharge, bleeding, gingivitis Throat: posterior oropharynx normal Eyes PERRL and EOMs intact bilaterally Neck no lymphadenopathy and supple Resp normal respiratory effort Neuro oriented x3 and CN's II-XII intact bilaterally Sensorium / Orientation: alert Gait (Neuro): normal gait Psych mental status grossly normal and thought process normal Skin no rashes or lesions noted and no wounds MDM MDM MDM Narrative Medical decision making narrative: Patient presents around 2 AM, stating that he is requesting pain control and prefers not to have narcotics, planning to revisit his dentist in the morning. Inferior alveolar block was discussed and he is comfortable with that plan which was done see the procedure note. Advised to continue the amoxicillin as prescribed. Procedures Other Procedures Procedure(s): Inferior alveolar nerve block: After informed verbal consent from the patient, the right posterior oral tissues were locally anesthetized with topical benzocaine, followed by injecting 2 cc of a 50/50 mix of 1% lidocaine with epinephrine and bupivacaine 0.5% was injected with good anesthesia after aspirating no arterial blood, no complications and tolerated well. Discharge Plan Triage Chief Complaint: Dental ED Provider: Alfa Flores Dx/Rx/DC Orders Clinical Impression: Odontalgia, Dental decay Instructions: Understanding Tooth Decay Prescriptions: No Action amoxicillin 875 mg tablet 875 mg PO BID RF: 0 Primary Care Provider: Moises Fermin Referrals: Moises Fermin, [Primary Care Provider] - Dentist,Your [STAFF PHYSICIAN] - As soon as possible Disposition Disposition: Home, Self Care
[2021-12-20] MEDS: Bupivacaine 0.5% PF 10 ML VIAL INFILT (02:36)
[2021-12-20 02:37] VITALS: BP 172/60; PULSE 82; RESP 19
[2021-12-20] MEDS: Lidocaine 1% /Epi 1:100 (50ml) 50 ML VIAL INFILT (02:37)
== END 2021-12-20 02:38 | disposition home or self-care (01) ==
LOC: ED 02:05
PROVIDERS: Emergency Provider Emergency Medicine; PCP Family Medicine; Visit Provider Emergency Medicine
DX: K02.9 Dental caries, unspecified (principal); K08.89 Other specified disorders of teeth and supporting structures
CPT/HCPCS: 64999; 99282

== ENCOUNTER 2022-07-12 14:42 | Emergency (ER) | payer MEDICAID, SELFPAY ==
[2022-07-12 14:44] VITALS: BP 162/97; PULSE 121; RESP 18; TEMP 36.1; O2SAT 95; BMI 27.6
== END 2022-07-12 15:35 | disposition left against medical advice (07) ==
LOC: ED 15:35
PROVIDERS: PCP Family Medicine
DX: T63.441A Toxic effect of venom of bees, accidental (unintentional), initial encounter (principal); Z53.21 Procedure and treatment not carried out due to patient leaving prior to being seen by health care provider